=== PATIENT | male | born 1955 | race Hispanic/Latino ===

== ENCOUNTER 2018-01-21 20:43 | Emergency (ER) | payer OTHER ==
[~2018-01-21 20:43] MED LIST: AEC81 PO; GLIM4TAB3 PO; METO-391 PO; ROSU5TAB PO; SITA1TAB6 PO; TRAM50TA4 PO
[2018-01-21] MEDS ORDERED: ONDANSETRON ODT 4 MG TAB ONE (21:20)
[2018-01-21] MEDS ORDERED: ORPHENADRINE CITRATE 30 MG/ML ML ONE (21:20)
[2018-01-21] MEDS ORDERED: MORPHINE SULFATE 4 MG/1ML SYG ONE (21:21)
[2018-01-21] MEDS ORDERED: MORPHINE SULFATE 2 MG/ML 1ML SYG ONE (21:22)
== END 2018-01-21 22:25 | disposition home or self-care (01) ==
LOC: EDH 20:43
DX: S39.012A Strain of muscle, fascia and tendon of lower back, initial encounter (principal); M51.86 Other intervertebral disc disorders, lumbar region; E11.9 Type 2 diabetes mellitus without complications; I25.10 Atherosclerotic heart disease of native coronary artery without angina pectoris; I10 Essential (primary) hypertension; E78.5 Hyperlipidemia, unspecified; Z95.1 Presence of aortocoronary bypass graft; Z98.890 Other specified postprocedural states; Z79.82 Long term (current) use of aspirin; Z79.899 Other long term (current) drug therapy; X50.9XXA Other and unspecified overexertion or strenuous movements or postures, initial encounter; Y93.89 Activity, other specified; Y92.89 Other specified places as the place of occurrence of the external cause; Y99.8 Other external cause status
CPT/HCPCS: 72131; 96372 ×2; 99284; J2270; J2360

== ENCOUNTER → 2018-06-29 | Outpatient (CLI) | payer OTHER ==
[~2018-06-29] MED LIST changes: +AMLO5TAB7 PO; +INSU100I24 SQ; +ISOS30TA6 PO; +METFORMIN PO; +NITR0.4T SL; +OLME1TAB42 PO; +REGADENOSON 0.4 MG/5 ML PF SYG IVP ONE; +ROSU5TAB11 PO
== END | disposition home or self-care (01) ==
LOC: SHCH 08:10
PROVIDERS: ATTEND Internal Medicine Cardiovascular Disease
DX: I25.10 Atherosclerotic heart disease of native coronary artery without angina pectoris (principal)
CPT/HCPCS: 78452; 93017; 96374; A9500 ×2; J2785

== ENCOUNTER 2018-07-02 05:49 | Inpatient (IN) | payer OTHER ==
[2018-07-01 15:00] VITALS: BP 142/72
[2018-07-01 15:16] LABS: BASOPHILS % (AUTO) 0.6 % (0.0-5.0); HEMATOCRIT 47.3 % (42-54); LYMPHOCYTES % (AUTO) 25.3 % (21.0-51.0); MEAN CORPUSCULAR HEMOGLOBIN 31.1 pg (27.0-33.0); MEAN CORPUSCULAR HGB CONC 34.6 g/dL (32.0-36.0); MEAN CORPUSCULAR VOLUME 89.8 fL (79-99); MONOCYTES % (AUTO) 7.1 % (3.0-13.0); PLATELET COUNT (AUTO) 208 K/uL (130-400); RED BLOOD CELL COUNT(AUTO) 5.27 MIL/uL (4.50-6.20); RED CELL DISTRIBUTION WIDTH 12.9 % (11.0-15.5); WHITE BLOOD COUNT (AUTO) 6.6 K/uL (4.8-10.8)
[2018-07-01 15:17] LABS: APPEARANCE,URINE Clear (CLEAR); BILIRUBIN,URINE Negative (NEGATIVE); COLOR,URINE Yellow (YELLOW); GLUCOSE, URINE (UA) >=1000 mg/dL (NEGATIVE); KETONES,URINE Trace mg/dL (NEGATIVE); LEUKOCYTE ESTERASE ,URINE Negative (NEGATIVE); NITRATE,URINE Negative (NEGATIVE); OCCULT BLOOD,URINE Negative (NEGATIVE); PH,URINE 5.5 (5.0-8.0); PROTEIN,URINE Negative (NEGATIVE)
[2018-07-01 15:24] LABS: POTASSIUM 4.2 mmol/L (3.5-5.1)
[2018-07-01 15:28] LABS: INR 0.97 (0.85-1.15); PARTIAL THROMBOPLASTIN TIME 26.1 SEC (26.3-35.5); PROTHROMBIN TIME 10.2 SEC (9.6-11.6)
[2018-07-01 15:33] LABS: BACTERIA,URINE None Seen /HPF (None Seen); RBC,URINE 0-1 /HPF (0-1); SQUAMOUS EPITHELIAL CELL,UR None Seen /HPF (0-2); WBC,URINE 0-1 /HPF (0-1)
[2018-07-02] VITALS (28 sets, daily range): BP systolic 89–151; BP diastolic 56–88
[~2018-07-02] VITALS: Ht 170.2 cm; Wt 96.2 kg
[~2018-07-02 05:49] MED LIST changes: -METO-391 PO; -REGADENOSON 0.4 MG/5 ML PF SYG IVP ONE; -SITA1TAB6 PO; +SODIUM CHLORIDE 0.9% 500ML 500 ML IV SCH; -TRAM50TA4 PO
[2018-07-02] MEDS ORDERED: SODIUM CHLORIDE 0.9% 1000ML 1,000 ML IV ONE (06:22)
[2018-07-02] MEDS ORDERED: METO100T14 PO (07:00)
[2018-07-02] MEDS ORDERED: IOHEXOL-350 50ML VIAL IV ONE (07:14)
[2018-07-02] MEDS ORDERED: LIDOCAINE HCL 2% 20ML ONE (07:14)
[2018-07-02] MEDS ORDERED: IOHEXOL 350 MG/ML 100ML INFUS..BTL IV ONE ×4 (07:14→09:21)
[2018-07-02] MEDS ORDERED: HEPARIN SODIUM 1000UNIT/ML 10ML VIAL ONE ×4 (07:14→14:35)
[2018-07-02] MEDS ORDERED: NITROGLYCERIN 4.1 GM SPRAY TL ONE (09:43)
[2018-07-02] MEDS ORDERED: ESMOLOL HCL 10 MG/ML 10 ML VIAL ONE (09:48)
[2018-07-02] MEDS ORDERED: SODIUM BICARB 50MEQ 50ML VIAL ONE (09:49)
[2018-07-02] MEDS ORDERED: AMINOCAPROIC ACID 250 MG/ML 20 ML VIAL IV ONE (09:49)
[2018-07-02] MEDS ORDERED: PROPOFOL 10 MG/ML 20ML VIAL IV ONE (09:49)
[2018-07-02] MEDS ORDERED: PROTAMINE SULFATE 10 MG/ML 25ML VIAL IV ONE ×2 (09:49→14:35)
[2018-07-02] MEDS ORDERED: NOREPINEPHRINE BITARTRATE 1 MG/1 ML ML IV ONE (09:49)
[2018-07-02] MEDS ORDERED: FENTANYL CITRATE PF 50 MCG/1 ML 20ML VIAL IJ ONE (09:49)
[2018-07-02] MEDS ORDERED: MIDAZOLAM HCL 1 MG/ML 5ML VIAL ONE (09:49)
[2018-07-02] MEDS ORDERED: LIDOCAINE PF 2% 5ML ABBOJECT ONE (09:49)
[2018-07-02] MEDS ORDERED: EPINEPHRINE 1 MG/ML AMPULE ONE (09:49)
[2018-07-02 09:57] LABS: HEMOGLOBIN A1C 8.5 % (4.0-6.0)
[2018-07-02] MEDS: CEFUROXIME SODIUM 1.5 GM VIAL ONE ×2 (10:00→14:30)
[2018-07-02] MEDS ORDERED: OCTYL 2-CYANOACRYLATE 1 EACH TP ONE ×2 (10:00→12:22)
[2018-07-02] MEDS ORDERED: BACITRACIN 50,000 UNIT VIAL ONE ×2 (10:00→12:22)
[2018-07-02] MEDS ORDERED: PAPAVERINE HCL 30 MG/ML 2ML VIAL ONE (10:00)
[2018-07-02 10:15] LABS: ABG BASE EXCESS -0.3 mmol/L (-2.0-3.0); ABG OXYGEN SATURATION 99.1 % (95.0-99.0); ABG PCO2 34 mmHg (35-48)
[2018-07-02] MEDS ORDERED: VASOPRESSIN 20 UNITS/ML 1ML VIAL ONE (11:48)
[2018-07-02 12:03] LABS: ABG HCO3 19.3 mmol/L (21.0-28.0); ABG OXYGEN SATURATION 98.9 % (95.0-99.0); ABG PCO2 30 mmHg (35-48)
[2018-07-02 12:18] LABS: ABG BASE EXCESS 5.9 mmol/L (-2.0-3.0); ABG HCO3 28.3 mmol/L (21.0-28.0); ABG OXYGEN SATURATION 98.4 % (95.0-99.0); ABG PCO2 33 mmHg (35-48)
[2018-07-02] MEDS ORDERED: NITROGLYCERIN 50 MG/D5% WATER 1 BOT ONE (12:22)
[2018-07-02] MEDS ORDERED: ROCURONIUM 10MG/1ML SYR 10 MG/ML ML ONE ×2 (12:22→14:28)
[2018-07-02] MEDS ORDERED: EPINEPHRINE 1 MG/ML 30ML VIAL IJ ONE (12:22)
[2018-07-02] MEDS ORDERED: SODIUM CHLORIDE 0.9% 250 ML IV PRN (12:30)
[2018-07-02] MEDS ORDERED: GLUCAGON 1MG KIT 1 MG ML IM PRN (12:30)
[2018-07-02] MEDS ORDERED: NOREPINEPHRINE 4MG/NS 250ML 250 ML IV PRN (12:30)
[2018-07-02] MEDS ORDERED: EPINEPHRINE 8 MG in SODIUM CHLORIDE 0.9% 250 ML IV PRN (12:30)
[2018-07-02] MEDS ORDERED: PROPOFOL 1000 MG/100 ML 100 ML IV PRN (12:30)
[2018-07-02] MEDS ORDERED: SODIUM BICARB 50MEQ 50ML VIAL IV PRN (12:30)
[2018-07-02] MEDS ORDERED: ACETAMINOPHEN 325 MG TAB PO PRN (12:30)
[2018-07-02] MEDS ORDERED: MORPHINE SULFATE 2 MG/ML 1ML SYG IV PRN (12:30)
[2018-07-02] MEDS ORDERED: ALBUMIN (HUMAN) 5% 250 ML IV PRN (12:30)
[2018-07-02] MEDS ORDERED: SODIUM CHLORIDE 0.9% 10 ML VIAL IVP PRN (12:30)
[2018-07-02] MEDS ORDERED: CALCIUM GLUCONATE 1 GM in SODIUM CHLORIDE 0.9% 50 ML IV PRN (12:30)
[2018-07-02] MEDS ORDERED: ACETAMINOPHEN 650 MG SUPPOSITORY RC PRN (12:30)
[2018-07-02] MEDS ORDERED: DEXTROSE 50%-WATER 50 ML DISP.SYRIN IV PRN (12:30)
[2018-07-02] MEDS ORDERED: ONDANSETRON HCL 4 MG/2 ML VIAL IV PRN (12:30)
[2018-07-02] MEDS ORDERED: SODIUM CHLORIDE 0.9% 500ML 500 ML IV SCH (12:30)
[2018-07-02] MEDS ORDERED: POTASSIUM PHOS 15 mMOL+NS250ML 250 ML IV PRN (12:30)
[2018-07-02] MEDS ORDERED: SODIUM CHLORIDE 0.9% 1000ML 1,000 ML IV SCH (12:30)
[2018-07-02] MEDS ORDERED: NITROGLYCERIN 50 MG/D5% WATER 250 BOT IV SCH (12:30)
[2018-07-02] MEDS ORDERED: INSULIN REGULAR, HUMAN 3ML 100 UNIT in SODIUM CHLORIDE 0.9% 99 ML IV SCH ×2 (12:30)
[2018-07-02] MEDS ORDERED: AMINOCAPROIC ACID 15,000 MG in SODIUM CHLORIDE 0.9% 250 ML IV SCH (12:30)
[2018-07-02 13:02] LABS: ABG BASE EXCESS 1.1 mmol/L (-2.0-3.0); ABG HCO3 24.9 mmol/L (21.0-28.0); ABG OXYGEN SATURATION 98.5 % (95.0-99.0); ABG PCO2 37 mmHg (35-48)
[2018-07-02] MEDS ORDERED: INSULIN HUMULIN R 100 UNIT/ML 3ML ONE (13:03)
[2018-07-02 13:38] LABS: ABG BASE EXCESS 1.7 mmol/L (-2.0-3.0); ABG HCO3 24.5 mmol/L (21.0-28.0); ABG OXYGEN SATURATION 98.5 % (95.0-99.0); ABG PCO2 32 mmHg (35-48)
[2018-07-02 14:20] LABS: ABG BASE EXCESS -0.3 mmol/L (-2.0-3.0); ABG HCO3 22.9 mmol/L (21.0-28.0); ABG OXYGEN SATURATION 98.4 % (95.0-99.0); ABG PCO2 32 mmHg (35-48)
[2018-07-02] MEDS ORDERED: CEFUROXIME SODIUM 1.5 GM VIAL ONE (14:46)
[2018-07-02 15:20] LABS: ABG BASE EXCESS 3.4 mmol/L (-2.0-3.0); ABG HCO3 26.9 mmol/L (21.0-28.0); ABG OXYGEN SATURATION 97.2 % (95.0-99.0); ABG PCO2 37 mmHg (35-48)
[2018-07-02] MEDS: POTASSIUM CHLORIDE 20MEQ/100ML 100 ML IV PRN ×3 (15:22→20:37)
[2018-07-02 15:24] LABS: HEMATOCRIT 29.4 % (42-54); MEAN CORPUSCULAR HEMOGLOBIN 30.3 pg (27.0-33.0); MEAN CORPUSCULAR HGB CONC 34.3 g/dL (32.0-36.0); MEAN CORPUSCULAR VOLUME 88.4 fL (79-99); NUCLEATED RED BLOOD CELLS 0.1 % (0.0-0.19); PLATELET COUNT (AUTO) 138 K/uL (130-400); RED BLOOD CELL COUNT(AUTO) 3.32 MIL/uL (4.50-6.20); RED CELL DISTRIBUTION WIDTH 12.5 % (11.0-15.5); WHITE BLOOD COUNT (AUTO) 10.1 K/uL (4.8-10.8)
[2018-07-02 15:35] LABS: MAGNESIUM 1.7 mg/dL (1.80-2.40); PHOSPHORUS 2.2 mg/dL (2.5-4.9); POTASSIUM 3.7 mmol/L (3.5-5.1)
[2018-07-02] MEDS: MAGNESIUM 2GM PREMIX 50ML 50 ML IV PRN (15:55)
[2018-07-02] MEDS: MORPHINE SULFATE 4 MG/1ML SYG IV PRN ×2 (15:56→19:45)
[2018-07-02 18:23] LABS: ABG HCO3 22.7 mmol/L (21.0-28.0); ABG PCO2 34 mmHg (35-48)
[2018-07-02 18:48] LABS: MAGNESIUM 2.2 mg/dL (1.80-2.40); POTASSIUM 3.8 mmol/L (3.5-5.1)
[2018-07-02 20:39] LABS: ABG BASE EXCESS 2.3 mmol/L (-2.0-3.0); ABG HCO3 26.4 mmol/L (21.0-28.0); ABG OXYGEN SATURATION 97.7 % (95.0-99.0); ABG PCO2 39 mmHg (35-48)
[2018-07-02 22:40] LABS: INR 1.05 (0.85-1.15); PARTIAL THROMBOPLASTIN TIME 29.3 SEC (26.3-35.5)
[2018-07-02] MEDS: CEFUROXIME SODIUM 1.5 GM VIAL IVP SCH (22:47)
[2018-07-03] VITALS (31 sets, daily range): BP systolic 94–119; BP diastolic 45–77
[2018-07-03] MEDS: TRAMADOL HCL 50 MG TABLET PO PRN ×5 (04:44→16:25)
[2018-07-03 04:52] LABS: HEMATOCRIT 30.9 % (42-54); MEAN CORPUSCULAR HEMOGLOBIN 31.3 pg (27.0-33.0); MEAN CORPUSCULAR VOLUME 89.6 fL (79-99); PLATELET COUNT (AUTO) 171 K/uL (130-400); RED BLOOD CELL COUNT(AUTO) 3.45 MIL/uL (4.50-6.20); RED CELL DISTRIBUTION WIDTH 13.1 % (11.0-15.5); WHITE BLOOD COUNT (AUTO) 9.8 K/uL (4.8-10.8)
[2018-07-03 05:05] LABS: INR 1.04 (0.85-1.15); PARTIAL THROMBOPLASTIN TIME 25.1 SEC (26.3-35.5); PROTHROMBIN TIME 10.9 SEC (9.6-11.6)
[2018-07-03 05:06] LABS: CREATININE 1.1 mg/dL (0.5-1.5); MAGNESIUM 1.8 mg/dL (1.80-2.40); PHOSPHORUS 2.6 mg/dL (2.5-4.9); POTASSIUM 3.8 mmol/L (3.5-5.1)
[2018-07-03] MEDS: MAGNESIUM 2GM PREMIX 50ML 50 ML IV PRN (05:45)
[2018-07-03] MEDS: POTASSIUM CHLORIDE 20MEQ/100ML 100 ML IV PRN (05:45)
[2018-07-03] MEDS: PANTOPRAZOLE SODIUM 40 MG TABLET.DR PO SCH (08:40)
[2018-07-03] MEDS ORDERED: PANTOPRAZOLE 40 MG/VIAL IV SCH (09:00)
[2018-07-03] MEDS: CEFUROXIME SODIUM 1.5 GM VIAL IVP SCH ×2 (10:59→23:52)
[2018-07-03] MEDS ORDERED: METOPROLOL TARTRATE 25 MG TAB ONE (16:37)
[2018-07-03] MEDS ORDERED: ALBUMIN (HUMAN) 5% 250 ML IV PRN (16:45)
[2018-07-03] MEDS: METOPROLOL TARTRATE 25 MG TAB PO SCH ×2 (17:24→20:17)
[2018-07-03] MEDS ORDERED: FUROSEMIDE 10 MG/ML 2ML VIAL IV SCH (19:30)
[2018-07-03] MEDS: ATORVASTATIN CALCIUM 10 MG TABLET PO SCH (20:17)
[2018-07-03] MEDS: ALPRAZOLAM 0.25 MG TABLET PO SCH (21:00)
[2018-07-04] VITALS (20 sets, daily range): BP systolic 103–144; BP diastolic 52–89
[2018-07-04] MEDS: TRAMADOL HCL 50 MG TABLET PO PRN ×4 (00:12→19:53)
[2018-07-04 07:22] LABS: HEMATOCRIT 29.6 % (42-54); MEAN CORPUSCULAR HEMOGLOBIN 30.3 pg (27.0-33.0); MEAN CORPUSCULAR HGB CONC 33.4 g/dL (32.0-36.0); MEAN CORPUSCULAR VOLUME 90.7 fL (79-99); PLATELET COUNT (AUTO) 136 K/uL (130-400); RED BLOOD CELL COUNT(AUTO) 3.26 MIL/uL (4.50-6.20); RED CELL DISTRIBUTION WIDTH 13.3 % (11.0-15.5); WHITE BLOOD COUNT (AUTO) 11.8 K/uL (4.8-10.8)
[2018-07-04 07:27] LABS: CREATININE 1.1 mg/dL (0.5-1.5); POTASSIUM 3.9 mmol/L (3.5-5.1)
[2018-07-04 07:31] LABS: MAGNESIUM 2.1 mg/dL (1.80-2.40); PHOSPHORUS 3.1 mg/dL (2.5-4.9)
[2018-07-04] MEDS: PANTOPRAZOLE SODIUM 40 MG TABLET.DR PO SCH (07:47)
[2018-07-04] MEDS: METOPROLOL TARTRATE 25 MG TAB PO SCH ×2 (07:47→19:53)
[2018-07-04] MEDS: ASPIRIN 81 MG EC TAB PO SCH (07:47)
[2018-07-04] MEDS: POTASSIUM CHLORIDE 20MEQ/100ML 100 ML IV PRN (09:34)
[2018-07-04] MEDS: FUROSEMIDE 20 MG TABLET PO SCH (16:10)
[2018-07-04 16:44] LABS: ABG BASE EXCESS 2.3 mmol/L (-2.0-3.0); ABG HCO3 23.8 mmol/L (21.0-28.0); ABG OXYGEN SATURATION 98.7 % (95.0-99.0); ABG PCO2 29 mmHg (35-48)
[2018-07-04 16:44] LABS: ABG BASE EXCESS 0.8 mmol/L (-2.0-3.0); ABG HCO3 24.8 mmol/L (21.0-28.0); ABG OXYGEN SATURATION 97.5 % (95.0-99.0); ABG PCO2 38 mmHg (35-48)
[2018-07-04] MEDS: INSULIN HUMULIN R 100 UNIT/ML 3ML SQ SCH ×2 (17:27→20:11)
[2018-07-04] MEDS: ATORVASTATIN CALCIUM 10 MG TABLET PO SCH (19:53)
[2018-07-04] MEDS: ALPRAZOLAM 0.25 MG TABLET PO SCH (19:54)
[2018-07-05 03:59] VITALS: BP 120/75
[2018-07-05 04:08] LABS: HEMATOCRIT 27.4 % (42-54); MEAN CORPUSCULAR HEMOGLOBIN 31.7 pg (27.0-33.0); MEAN CORPUSCULAR HGB CONC 34.6 g/dL (32.0-36.0); MEAN CORPUSCULAR VOLUME 91.7 fL (79-99); PLATELET COUNT (AUTO) 133 K/uL (130-400); RED BLOOD CELL COUNT(AUTO) 2.99 MIL/uL (4.50-6.20); RED CELL DISTRIBUTION WIDTH 13.1 % (11.0-15.5)
[2018-07-05 04:20] LABS: CREATININE 1.1 mg/dL (0.5-1.5); POTASSIUM 3.8 mmol/L (3.5-5.1)
[2018-07-05] MEDS: INSULIN HUMULIN R 100 UNIT/ML 3ML SQ SCH ×5 (05:26→20:51)
[2018-07-05] MEDS: TRAMADOL HCL 50 MG TABLET PO PRN ×3 (05:43→18:23)
[2018-07-05 07:00] VITALS: BP 112/60
[2018-07-05] MEDS ORDERED: POTASSIUM CHLORIDE 10% ELIXIR 20 MEQ/15 ML UDCUP PO PRN (07:30)
[2018-07-05] MEDS ORDERED: LIDOCAINE HCL-MPF 1% 2ML VIAL IVP PRN (07:30)
[2018-07-05] MEDS: ENOXAPARIN SODIUM 30 MG/0.3 ML SQ SCH (08:21)
[2018-07-05] MEDS: POTASSIUM CHLORIDE 20 MEQ ERTAB PO PRN ×2 (08:21→17:06)
[2018-07-05] MEDS: METOPROLOL TARTRATE 25 MG TAB PO SCH ×2 (08:22→09:50)
[2018-07-05] MEDS: PANTOPRAZOLE SODIUM 40 MG TABLET.DR PO SCH (08:22)
[2018-07-05] MEDS: FUROSEMIDE 20 MG TABLET PO SCH ×2 (08:22→17:05)
[2018-07-05] MEDS: ASPIRIN 81 MG EC TAB PO SCH (08:22)
[2018-07-05 11:00] VITALS: BP 107/64
[2018-07-05 16:00] VITALS: BP 106/63
[2018-07-05 19:40] VITALS: BP 127/72
[2018-07-05] MEDS: ALPRAZOLAM 0.25 MG TABLET PO SCH (20:43)
[2018-07-05] MEDS: METOPROLOL TARTRATE 50 MG TAB PO SCH (20:43)
[2018-07-05] MEDS: ATORVASTATIN CALCIUM 40 MG TABLET PO SCH (20:43)
[2018-07-06 00:06] VITALS: BP 114/63
[2018-07-06 03:30] VITALS: BP 102/57
[2018-07-06 06:04] LABS: BASOPHILS % (AUTO) 0.3 % (0.0-5.0); EOSINOPHILS % (AUTO) 2.6 % (0.0-8.0); HEMATOCRIT 28.3 % (42-54); LYMPHOCYTES % (AUTO) 12.2 % (21.0-51.0); MEAN CORPUSCULAR HEMOGLOBIN 30.9 pg (27.0-33.0); MEAN CORPUSCULAR HGB CONC 33.9 g/dL (32.0-36.0); NEUTROPHILS % (AUTO) 74.9 % (40.0-77.0); PLATELET COUNT (AUTO) 160 K/uL (130-400); RED BLOOD CELL COUNT(AUTO) 3.11 MIL/uL (4.50-6.20); RED CELL DISTRIBUTION WIDTH 13.3 % (11.0-15.5)
[2018-07-06] MEDS: INSULIN HUMULIN R 100 UNIT/ML 3ML SQ SCH ×4 (06:06→21:52)
[2018-07-06 06:10] LABS: CREATININE 1.1 mg/dL (0.5-1.5); POTASSIUM 3.7 mmol/L (3.5-5.1)
[2018-07-06 07:00] VITALS: BP 109/56
[2018-07-06] MEDS: FUROSEMIDE 20 MG TABLET PO SCH ×2 (07:43→16:30)
[2018-07-06] MEDS: ASPIRIN 81 MG EC TAB PO SCH (07:43)
[2018-07-06] MEDS: METOPROLOL TARTRATE 50 MG TAB PO SCH (07:43)
[2018-07-06] MEDS: PANTOPRAZOLE SODIUM 40 MG TABLET.DR PO SCH (07:43)
[2018-07-06] MEDS: ENOXAPARIN SODIUM 30 MG/0.3 ML SQ SCH (07:44)
[2018-07-06] MEDS: METOPROLOL TARTRATE 25 MG TAB PO SCH ×3 (07:45→21:47)
[2018-07-06 11:59] VITALS: BP_SYST 122; BP_SYST 71; BP_DIAS 71
[2018-07-06 16:00] VITALS: BP 119/71
[2018-07-06] MEDS: ALPRAZOLAM 0.25 MG TABLET PO SCH (21:47)
[2018-07-06] MEDS: ATORVASTATIN CALCIUM 40 MG TABLET PO SCH (21:48)
[2018-07-07] VITALS: BP 123/69
[2018-07-07 04:00] VITALS: BP 122/71
[2018-07-07 04:56] LABS: HEMATOCRIT 27.2 % (42-54); MEAN CORPUSCULAR HEMOGLOBIN 31.4 pg (27.0-33.0); MEAN CORPUSCULAR HGB CONC 34.6 g/dL (32.0-36.0); MEAN CORPUSCULAR VOLUME 90.8 fL (79-99); NUCLEATED RED BLOOD CELLS 0.1 % (0.0-0.19); PLATELET COUNT (AUTO) 181 K/uL (130-400); WHITE BLOOD COUNT (AUTO) 5.8 K/uL (4.8-10.8)
[2018-07-07 05:16] LABS: PHOSPHORUS 2.7 mg/dL (2.5-4.9); POTASSIUM 3.6 mmol/L (3.5-5.1)
[2018-07-07] MEDS: INSULIN HUMULIN R 100 UNIT/ML 3ML SQ SCH ×3 (06:39→17:07)
[2018-07-07 07:51] VITALS: BP 131/70
[2018-07-07] MEDS: METOPROLOL TARTRATE 25 MG TAB PO SCH ×3 (09:30→14:14)
[2018-07-07] MEDS: ENOXAPARIN SODIUM 30 MG/0.3 ML SQ SCH (10:13)
[2018-07-07] MEDS: ASPIRIN 81 MG EC TAB PO SCH (10:14)
[2018-07-07] MEDS: POTASSIUM CHLORIDE 20 MEQ ERTAB PO PRN ×2 (10:14→17:06)
[2018-07-07] MEDS: PANTOPRAZOLE SODIUM 40 MG TABLET.DR PO SCH (10:14)
[2018-07-07] MEDS: FUROSEMIDE 20 MG TABLET PO SCH ×2 (10:14→17:06)
[2018-07-07 11:00] VITALS: BP 130/68
[2018-07-07 16:20] VITALS: BP 111/70
[2018-07-07] MEDS ORDERED: METO25 PO ×2 (16:22)
[2018-07-07] MEDS ORDERED: AEC81 PO ×2 (16:22)
[2018-07-07] MEDS ORDERED: FURO20TA6 PO ×2 (16:22)
[2018-07-07] MEDS ORDERED: ATOR40TA69 PO ×2 (16:22)
== END 2018-07-07 18:00 | disposition home or self-care (01) | DRG 231 ==
LOC: DAH 05:49 → DAHIP 05:50 → 2CV 14:43 → 2CH 07-03 05:57 → 2BH 07-03 14:00 → 2CH 07-04 15:00 → 4CH 07-06 08:27
PROVIDERS: ADMIT Internal Medicine Critical Care Medicine; ATTEND Internal Medicine Critical Care Medicine
PROC: 4A023N7 Measurement of Cardiac Sampling and Pressure, Left Heart, Percutaneous Approach (ICD-10-PCS; 2018-07-02)
PROC: B2111ZZ Fluoroscopy of Multiple Coronary Arteries using Low Osmolar Contrast (ICD-10-PCS; 2018-07-02)
PROC: B2151ZZ Fluoroscopy of Left Heart using Low Osmolar Contrast (ICD-10-PCS; 2018-07-02)
PROC: 0BH17EZ Insertion of Endotracheal Airway into Trachea, Via Natural or Artificial Opening (ICD-10-PCS; 2018-07-02)
PROC: 5A1935Z Respiratory Ventilation, Less than 24 Consecutive Hours (ICD-10-PCS; 2018-07-02)
PROC: 027034Z Dilation of Coronary Artery, One Artery with Drug-eluting Intraluminal Device, Percutaneous Approach (ICD-10-PCS; 2018-07-02)
PROC: 021209W Bypass Coronary Artery, Three Arteries from Aorta with Autologous Venous Tissue, Open Approach (ICD-10-PCS; principal; 2018-07-03)
PROC: 06BQ4ZZ Excision of Left Saphenous Vein, Percutaneous Endoscopic Approach (ICD-10-PCS; 2018-07-03)
PROC: 06BP4ZZ Excision of Right Saphenous Vein, Percutaneous Endoscopic Approach (ICD-10-PCS; 2018-07-03)
PROC: 30233L1 Transfusion of Nonautologous Fresh Plasma into Peripheral Vein, Percutaneous Approach (ICD-10-PCS; 2018-07-03)
PROC: 30233R1 Transfusion of Nonautologous Platelets into Peripheral Vein, Percutaneous Approach (ICD-10-PCS; 2018-07-03)
PROC: 30233K1 Transfusion of Nonautologous Frozen Plasma into Peripheral Vein, Percutaneous Approach (ICD-10-PCS; 2018-07-03)
PROC: 5A1221Z Performance of Cardiac Output, Continuous (ICD-10-PCS; 2018-07-03)
DX: I25.110 Atherosclerotic heart disease of native coronary artery with unstable angina pectoris (principal); I21.9 Acute myocardial infarction, unspecified; I77.70 Dissection of unspecified artery; I10 Essential (primary) hypertension; E11.9 Type 2 diabetes mellitus without complications; E66.9 Obesity, unspecified; E78.5 Hyperlipidemia, unspecified; Z96.659 Presence of unspecified artificial knee joint; Z95.1 Presence of aortocoronary bypass graft; Z79.4 Long term (current) use of insulin; Z79.82 Long term (current) use of aspirin; Z87.442 Personal history of urinary calculi; Z68.33 Body mass index [BMI] 33.0-33.9, adult
CPT/HCPCS: 36415; 71045; 80048; 81001; 82330; 82435; 82803; 82947; 82948; 83036; 83605; 83735; 84100; 84132; 84295; 85018; 85025; 85027; 85347; 85610; 85730; 86850; 86900; 86901; 86922; 86927; 93005; 93306; 93459; 94002; 94150; 97039; A4218; A4606; A7048; C1725; C1769; C1887; C1894; C9113; C9600; J0171; J0610; J0697; J1644; J1650; J1815; J1940; J2001; J2250; J2270; J2440; J2704; J2720; J3010; J3475; J3480; J3490; J7030; J7040; P9017; P9034; P9045; Q9967

== ENCOUNTER 2018-07-08 23:58 | Inpatient (IN) | payer OTHER ==
[~2018-07-08 23:58] MED LIST changes: +ATOR40TA69 PO; +FURO20TA6 PO; +METO100T14 PO; +METO25 PO; -SODIUM CHLORIDE 0.9% 500ML 500 ML IV SCH
[2018-07-09] MEDS ORDERED: ASPIRIN 325 MG TABLET ONE (00:11)
[2018-07-09 00:15] LABS: BASOPHILS % (AUTO) 0.4 % (0.0-5.0); EOSINOPHILS % (AUTO) 2.3 % (0.0-8.0); HEMATOCRIT 32.3 % (42-54); LYMPHOCYTES % (AUTO) 17.8 % (21.0-51.0); MEAN CORPUSCULAR HEMOGLOBIN 31.3 pg (27.0-33.0); MEAN CORPUSCULAR HGB CONC 34.4 g/dL (32.0-36.0); MEAN CORPUSCULAR VOLUME 91.1 fL (79-99); MONOCYTES % (AUTO) 12.3 % (3.0-13.0); NEUTROPHILS % (AUTO) 67.2 % (40.0-77.0); NUCLEATED RED BLOOD CELLS 0.1 % (0.0-0.19); PLATELET COUNT (AUTO) 268 K/uL (130-400); RED BLOOD CELL COUNT(AUTO) 3.54 MIL/uL (4.50-6.20); WHITE BLOOD COUNT (AUTO) 7.7 K/uL (4.8-10.8)
[2018-07-09 00:23] LABS: CREATININE 0.9 mg/dL (0.5-1.5); POTASSIUM 4.1 mmol/L (3.5-5.1)
[2018-07-09] MEDS ORDERED: MORPHINE SULFATE 2 MG/ML 1ML SYG ONE ×2 (00:25→04:52)
[2018-07-09 00:27] LABS: PARTIAL THROMBOPLASTIN TIME 23.9 SEC (26.3-35.5); PROTHROMBIN TIME 10.5 SEC (9.6-11.6)
[2018-07-09] MEDS ORDERED: IPRATROPIUM/ALBUTEROL SULFATE 3 ML SOLUTION IH ONE (00:32)
[2018-07-09 00:33] LABS: BILIRUBIN,TOTAL 0.7 mg/dL (0.2-1.0)
[2018-07-09] MEDS ORDERED: IOHEXOL 350 MG/ML 100ML INFUS..BTL IV ONE (01:14)
[2018-07-09] MEDS ORDERED: ENOXAPARIN SODIUM 100 MG/1 ML SQ ONE (02:43)
[2018-07-09] MEDS ORDERED: DEXTROSE 50%-WATER 50 ML DISP.SYRIN IV PRN (05:00)
[2018-07-09] MEDS ORDERED: MORPHINE SULFATE 2 MG/ML 1ML SYG IVP PRN (05:00)
[2018-07-09] MEDS ORDERED: GLUCAGON 1MG KIT 1 MG ML IM PRN (05:00)
[2018-07-09] MEDS: INSULIN R PO SS1 SQ SCH ×3 (05:08→16:30)
[2018-07-09] MEDS ORDERED: POTASSIUM CHLORIDE 20MEQ/100ML 100 ML IV PRN (05:15)
[2018-07-09] MEDS ORDERED: POTASSIUM CHLORIDE 20 MEQ ERTAB PO PRN (05:15)
[2018-07-09] MEDS ORDERED: LIDOCAINE HCL-MPF 1% 2ML VIAL IJ PRN (05:15)
[2018-07-09] MEDS ORDERED: ONDANSETRON HCL 4 MG/2 ML VIAL IVP PRN (05:15)
[2018-07-09] MEDS ORDERED: POTASSIUM CHLORIDE 10% ELIXIR 20 MEQ/15 ML UDCUP PO PRN (05:15)
[2018-07-09] MEDS ORDERED: ACETAMINOPHEN 325 MG TAB PO PRN (05:15)
[2018-07-09] MEDS: IPRATROPIUM/ALBUTEROL SULFATE 3 ML SOLUTION IH SCH ×3 (06:08→14:41)
[2018-07-09 07:36] VITALS: BP 118/71
[2018-07-09] MEDS ORDERED: FUROSEMIDE 40 MG TABLET PO SCH (09:00)
[2018-07-09] MEDS ORDERED: METOPROLOL TARTRATE 25 MG TAB PO SCH (09:00)
[2018-07-09] MEDS ORDERED: ENOXAPARIN SODIUM 100 MG/1 ML SQ SCH (09:00)
[2018-07-09] MEDS ORDERED: PANTOPRAZOLE SODIUM 40 MG TABLET.DR PO SCH (09:00)
[2018-07-09 11:06] VITALS: BP 116/67
[2018-07-09 16:23] VITALS: BP 114/73
== END 2018-07-09 17:20 | disposition home or self-care (01) | DRG 176 ==
LOC: EDH 23:58 → EDHIP 07-09 03:15 → 2AH 07-09 04:01
PROVIDERS: ADMIT Internal Medicine; ATTEND Internal Medicine
DX: I26.09 Other pulmonary embolism with acute cor pulmonale (principal); J90 Pleural effusion, not elsewhere classified; E11.9 Type 2 diabetes mellitus without complications; I10 Essential (primary) hypertension; E78.5 Hyperlipidemia, unspecified; I25.10 Atherosclerotic heart disease of native coronary artery without angina pectoris; Z95.1 Presence of aortocoronary bypass graft
CPT/HCPCS: 36415; 71045; 71275; 80053; 82550; 82948; 83874; 84484; 85025; 85378; 85610; 85730; 93005; 93970; 94640; 94664; J1650; J1815; Q9967

== ENCOUNTER → 2018-12-09 | Outpatient (CLI) | payer OTHER ==
[~2018-12-09] MED LIST changes: -AMLO5TAB7 PO; -ISOS30TA6 PO; -METFORMIN PO; -METO100T14 PO; -OLME1TAB42 PO; -ROSU5TAB PO; -ROSU5TAB11 PO
== END | disposition home or self-care (01) ==
LOC: SHCH 10:20
PROVIDERS: ATTEND Internal Medicine Cardiovascular Disease
DX: I25.810 Atherosclerosis of coronary artery bypass graft(s) without angina pectoris (principal); E78.00 Pure hypercholesterolemia, unspecified; I10 Essential (primary) hypertension; E78.5 Hyperlipidemia, unspecified; E11.9 Type 2 diabetes mellitus without complications
CPT/HCPCS: 93970

== ENCOUNTER → 2024-02-15 | Outpatient (CLI) | payer OTHER ==
[~2024-02-15] MED LIST changes: -GLIM4TAB3 PO; +GLIM4TAB36 PO
== END | disposition home or self-care (01) ==
LOC: RAH 10:17
PROVIDERS: ATTEND Internal Medicine Cardiovascular Disease
DX: M47.816 Spondylosis without myelopathy or radiculopathy, lumbar region (principal); M54.50 Low back pain, unspecified
CPT/HCPCS: 72100

== ENCOUNTER 2024-08-02 16:41 | Observation (INO) | payer OTHER ==
[~2024-08-02] VITALS: Ht 172.7 cm; Wt 88.7 kg
--- NOTE | 2024-08-02 16:50 | EKG ---
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 : 1955 Requested By: GERALDINE FERNANDEZ Order Number: [id number] Reading MD: Tian Havrey Measurements Intervals Abrams Rate: 72 P: 24 FL: 165 QRS: -58 QRSD: 124 T: 128 QT: 433 QTc: 475 Interpretive Statements Sinus rhythm Nonspecific IVCD with LAD Consider inferior infarct Abnormal T, consider ischemia, lateral leads Compared to ECG 07/09/2018 00:00:53 Intraventricular conduction delay now present Myocardial infarct finding now present T-wave abnormality now present Sinus tachycardia no longer present Left anterior fascicular block no longer present ST (T wave) deviation no longer present Possible ischemia still present Electronically Signed On 08-03-2024 18:39:23 AUTOMATIC EDGER by Tian Harvey Please click the below link to view image of tracing.
[2024-08-02 17:16] LABS: BASOPHILS # (AUTO) 0.06 K/uL (0.00-0.20); BASOPHILS % (AUTO) 0.9 % (0.0-5.0); EOSINOPHILS # (AUTO) 0.12 K/uL (0.00-0.70); EOSINOPHILS % (AUTO) 1.7 % (0.0-8.0); HEMATOCRIT 45.6 % (42-54); IMMATURE GRANULOCYTE ABSOLUTE 0.02 K/uL (0-1); LYMPHOCYTES # (AUTO) 1.8 K/uL (1.0-4.8); LYMPHOCYTES % (AUTO) 25.1 % (21.0-51.0); MEAN CORPUSCULAR HEMOGLOBIN 30.4 pg (27.0-33.0); MEAN CORPUSCULAR HGB CONC 33.1 g/dL (32.0-36.0); MEAN CORPUSCULAR VOLUME 91.9 fL (79-99); MONOCYTES # (AUTO) 0.5 K/uL (0.1-1.0); MONOCYTES % (AUTO) 7.3 % (3.0-13.0); NEUTROPHILS # (AUTO) 4.5 K/uL (1.8-7.7); NEUTROPHILS % (AUTO) 64.7 % (40.0-77.0); PLATELET COUNT (AUTO) 185 K/uL (130-400); RED BLOOD CELL COUNT(AUTO) 4.96 MIL/uL (4.50-6.20); RED CELL DISTRIBUTION WIDTH 13.7 % (11.0-15.5)
[2024-08-02 17:31] LABS: COVID19 (SARS ANTIGEN RAPID) PRESUMPTIVE NEGATIVE (NEGATIVE)
[2024-08-02 17:31] LABS: CREATININE 1.2 mg/dL (0.5-1.3); POTASSIUM 4.2 mmol/L (3.5-5.1)
--- NOTE | 2024-08-02 17:32 | HMCIMG ---
PORTABLE CHEST RADIOGRAPH INDICATION: CHEST PAIN COMPARISON: 07/09/2018 CTA chest FINDINGS: Median sternotomy wires are in appropriate alignment. Heart is slightly enlarged. The pulmonary vascularity and hawa appear normal. No abnormal pulmonary parenchymal opacity or consolidation identified. No significant pleural effusion noted. No pneumothorax detected. IMPRESSION: Mild cardiac enlargement without radiographic evidence for any acute cardiopulmonary process.
[2024-08-02 17:36] LABS: INFLUENZA TYPE A Negative For Type A (NEGATIVE); INFLUENZA TYPE B Negative For Type B (NEGATIVE)
--- NOTE | 2024-08-02 17:53 | ERN ---
General Chief Complaint: Chest Pain Stated Complaint: CHEST PAIN Time Seen by MD: 16:43 History of Present Illness Initial Comments 68 y/o male presents for dyspnea epigastric and chest discomfort over the last couple of weeks. He reports progressive dyspnea mostly with exercise. He reports a little bit of pedal edema. He has been experiencing some epigastric bloating and pain which does increase with movement. He has been eating. No vomiting or diarrhea. No heartburn. PCP: [employer] Ambassador: Joshua Allergies: Coded Allergies: No Known Drug Allergies (Verified Allergy, Unknown, 02/17/14) Home Meds Active Scripts Furosemide (Lasix 20Mg Tab) 20 Mg Tablet, 20 MG PO BID@09,17 for 30 Days, #60 TAB Prov:QUANG MONTERO NP 07/07/18 Atorvastatin Calcium (LIPITOR) 40 Mg Tablet, 40 MG PO HS for 30 Days, #30 TAB Prov:QUANG MONTERO NP 07/07/18 Aspirin (ASPIRIN 81 MG ECTAB) 81 Mg Ectab, 81 MG PO DAILY for 30 Days, #30 TAB.EC Prov:QUANG MONTERO NP 07/07/18 Metoprolol Tartrate (Lopressor) 25 Mg Tab, 25 MG PO TID for 30 Days, #90 TAB Prov:QUANG MONTERO NP 07/07/18 Reported Medications Insulin Degludec (Tresiba Flextouch U-100) 100 Unit/1 Ml Insuln.pen, 30 UNITS SQ DAILY, SYRINGE 07/01/18 Nitroglycerin (Nitrostat) 0.4 Mg Tab.subl, 0.4 MG SL AD PRN for CHEST PAIN, TAB.SL 07/01/18 Glimepiride (Glimepiride) 4 Mg Tablet, 4 MG PO BIDMEALS, TAB 06/12/14 Past Medical History Past Medical History: Diabetes-Type II, High Cholesterol, Hypertension, CA Past Surgical History: CABG ROS Dictation Chest pain Results Laboratory and Microbiology Lab and Micro Result Laboratory Tests Test 08/02/24 16:52 08/02/24 16:55 08/02/24 17:13 Influenza Type A Antigen Negative For Type A Influenza Type B Antigen Negative For Type B SARS-CoV-2 Antigen (Rapid) PRESUMPTIVE NEGATIVE White Blood Count 7.0 K/uL (4.8-10.8) Red Blood Count 4.96 MIL/uL (4.50-6.20) Hemoglobin 15.1 g/dL (14.0-18.0) Hematocrit 45.6 % (42-54) Mean Corpuscular Volume 91.9 fL (79-99) Mean Corpuscular Hemoglobin 30.4 pg (27.0-33.0) Mean Corpuscular Hemoglobin Concent 33.1 g/dL (32.0-36.0) Red Cell Distribution Width 13.7 % (11.0-15.5) Platelet Count 185 K/uL (130-400) Mean Platelet Volume 9.2 fL (7.5-10.5) Immature Granulocyte % (Auto) 0.3 % (0-1) Neutrophils (%) (Auto) 64.7 % (40.0-77.0) Lymphocytes (%) (Auto) 25.1 % (21.0-51.0) Monocytes (%) (Auto) 7.3 % (3.0-13.0) Eosinophils (%) (Auto) 1.7 % (0.0-8.0) Basophils (%) (Auto) 0.9 % (0.0-5.0) Neutrophils # (Auto) 4.5 K/uL (1.8-7.7) Lymphocytes # (Auto) 1.8 K/uL (1.0-4.8) Monocytes # (Auto) 0.5 K/uL (0.1-1.0) Eosinophils # (Auto) 0.12 K/uL (0.00-0.70) Basophils # (Auto) 0.06 K/uL (0.00-0.20) Absolute Immature Granulocyte (auto 0.02 K/uL (0-1) Nucleated Red Blood Cells 0.0 % (0.0-0.19) Sodium Level 142 mmol/L (136-145) Potassium Level 4.2 mmol/L (3.5-5.1) Chloride Level 105 mmol/L (101-111) Carbon Dioxide Level 27 mmol/L (21-32) Blood Urea Nitrogen 23 mg/dL (7-18) H Creatinine 1.2 mg/dL (0.5-1.3) Glomerular Filtration Rate Calc 66 mL/min (>90) Random Glucose 148 mg/dL (70-105) H Total Calcium 9.2 mg/dL (8.5-10.1) Total Bilirubin 1.0 mg/dL (0.2-1.0) Direct Bilirubin 0.2 mg/dL (0.0-0.3) Aspartate Amino Transf (AST/SGOT) 34 U/L (10-37) Alanine Aminotransferase (ALT/SGPT) 48 U/L (12-78) Alkaline Phosphatase 78 U/L (50-136) Total Creatine Kinase 271 U/L (21-232) #H B-Type Natriuretic Peptide 568 pg/mL (0-100) H Total Protein 7.0 g/dL (6.0-8.3) Albumin 4.0 g/dL (3.5-5.0) Lipase 52 U/L (16-77) Troponin I < 0.05 ng/mL (0.00-0.05) [facility] Dr. Frances: I took over care at 7:00 p.m.. CC: Chest pain, dyspnea Historian: Patient PCP: Luciano Limitations by social determinates of health: none Differential diagnosis: ACS, PE, pleural effusion, fluid overload, pne umothorax, other. Vital signs are stable. Clinical exam shows 1+ pitting edema to the feet otherwise unremarkable. Decreased breath sounds on the right compared to the left. Labs ( independently ordered and interpreted by me): CBC is normal , chemistries normal. Troponin normal. Liver enzymes normal. CK normal. Lipase normal. Mild elevation of the BNP 568. EKG: Sinus rhythm rate of 72 left axis deviation good R-wave progression. CXR mild cardiomegaly no acute abnormalities otherwise sternotomy wires appropriate. Independently interpreted by me. CT abdomen and pelvis for might have been interpretation shows no surgical pathology. There is a left lower lobe micronodule those as well as a small right pleural effusion, with metastatic disease if the top differential. Due to this finding, we will admit for further treatment evaluation. Patient is agreeable. ED Course Orders Procedure Category Date Status Time Vital Signs Per CPOE 08/02/24 Transmitted Routine 16:42 B-Type Natriuretic LAB 08/02/24 Complete Peptide 16:42 Chest 1vw RAD 08/02/24 Resulted 16:42 12 Lead Ekg Tracing- EKG 08/02/24 Complete Technical 16:42 Oxygen By Nc/Pulse Ox CPOE 08/02/24 Transmitted 16:42 Maintain Iv CPOE 08/02/24 Transmitted 16:42 Iv Insertion CPOE 08/02/24 Transmitted 16:42 Cardiac Monitoring CPOE 08/02/24 Transmitted 16:42 Pulse Oximetry With CPOE 08/02/24 Transmitted Vs And Prn 16:42 Cbc With Differential LAB 08/02/24 Complete 16:42 Activity: Br W/Brp CPOE 08/02/24 Transmitted With Assist 16:42 Creatine Kinase, Total LAB 08/02/24 Complete 16:42 Urinalysis Profile LAB 08/02/24 Logged 16:42 Troponin Poc Order LAB 08/02/24 Complete Only 16:42 Bedside Troponin-I LAB.ER 08/02/24 In Process (Poc) 16:42 Basic Metabolic Panel LAB 08/02/24 Complete 16:42 Covid19 (Sars Antigen LAB 08/02/24 Complete Rapid) 16:42 Influenza Type A & B, LAB 08/02/24 Complete Rapid 16:42 Aspirin 325mg Tab PHA 08/02/24 Complete (Aspirin 325mg Tab) 20:00 Hepatic Function Panel LAB 08/02/24 Complete 20:06 Lipase LAB 08/02/24 Complete 20:06 Ct Abdomen/Pelvis CT 08/02/24 Resulted W/Contrast 20:06 Iohexol (Omnipaque) PHA 08/02/24 Complete 20:20 Ct Chest W/Contrast CT 08/02/24 Resulted 20:48 Iohexol (Omnipaque) PHA 08/02/24 Complete 21:22 Current Medications Medications (Trade) Dose Ordered Sig/Dmitry Route PRN Reason Start Time Stop Time Status Last Admin Dose Admin Acetaminophen (TYLenol 325MG TAB) 650 mg Q6H PRN PO FEVER/MILD PAIN LEVEL 1-3 08/02/24 21:30 09/01/24 21:29 Albuterol Sulfate (Proventil 0.083% 2.5mg/3ml) 2.5 mg [id number] PRN IH SHORTNESS OF BREATH 08/02/24 21:30 09/01/24 21:29 Aspirin (Aspirin 325mg Tab) 325 mg ONCE ONCE PO 08/02/24 20:00 08/02/24 20:01 DC 08/02/24 20:00 Clonidine HCl (CATApres 0.1 mg TAB) 0.1 mg Q6H PRN PO IF SBP GREATER THAN 160 08/02/24 21:30 09/01/24 21:29 Dextrose (D50w) 50 ml AD PRN IV HYPOGLYCEMIA PROTOCOL 08/02/24 21:30 09/01/24 21:29 Furosemide (LASix 20MG VIAL) 40 mg Q12H IV 08/02/24 21:30 09/01/24 21:29 08/02/24 21:59 Glucagon (Glucagon 1mg Kit) 1 mg AD PRN IM HYPOGLYCEMIA PROTOCOL 08/02/24 21:30 09/01/24 21:29 Hydralazine HCl (APRESOLine 20MG INJ) 10 mg Q6H PRN IV SBP GREATER THAN 180 08/02/24 21:30 09/01/24 21:29 Iohexol (Omnipaque) 75 ml STK-MED ONCE IV 08/02/24 20:20 08/02/24 20:20 DC Iohexol (Omnipaque) 75 ml STK-MED ONCE IV 08/02/24 21:22 08/02/24 21:22 DC Labetalol HCl (TRANdate 20MG SYG) 10 mg Q4HPRN PRN IV SBP GREATER THAN 160 08/02/24 21:30 09/01/24 21:29 Lactulose (Constulose 20gm/ 30ml Udcup) 20 gm Q6H PRN PO CONSTIPATION 08/02/24 21:30 09/01/24 21:29 Magnesium Sulfate 50 ml @ 0 mls/hr PROTOCOL PRN IV MAGNESIUM PROTOCOL 08/02/24 21:30 09/01/24 21:29 Ondansetron HCl (zoFRAN 4MG INJ) 4 mg Q6H PRN IVP NAUSEA/VOMITING 08/02/24 21:30 09/01/24 21:29 Potassium Chloride (K-Dur/Klor-Con 20meq) 20 meq AD PRN PO POTASSIUM PROTOCOL 08/02/24 21:30 09/01/24 21:29 Potassium Chloride (KCl 10% Elixir 20meq/15ml) 20 meq AD PRN PO POTASSIUM PROTOCOL 08/02/24 21:30 09/01/24 21:29 Vital Signs Date Time Temp Pulse Resp B/P (MAP) Pulse Ox O2 Delivery O2 Flow Rate FiO2 08/02/24 16:43 98.4 68 20 150/100 98 Room Air 0 DX & DISP Disposition: Inpatient Departure Impression: Primary Impression: Pleural effusion Additional Impression: Chest pain Condition: Stable Referrals: JEFFREY DOMINGUEZ MD (PCP) GERALDINE FERANNDEZ MD Aug 02, 2024 17:53 EVELYN FRANCES DO Aug 02, 2024 21:05
[2024-08-02 18:11] LABS: B-TYPE NATRIURETIC PEPTIDE 568 pg/mL (0-100)
[2024-08-02] MEDS: ASPIRIN 325MG TAB PO ONE (20:00)
--- NOTE | 2024-08-02 20:00 | NUR ---
Monika byers in EDM - 08/02/24 at 2001 by [email or web address] PATIENT BROUGHT TO ED 18
[2024-08-02] MEDS ORDERED: IOHEXOL-350 75 ML VIAL IV ONE ×2 (20:20→21:22)
--- NOTE | 2024-08-02 20:40 | HMCIMG ---
CT ABDOMEN WITH CONTRAST. CT PELVIS WITH CONTRAST INDICATION: Epigastric bloating TECHNIQUE: Routine transaxial images using 5 mm slice thickness were obtained after the intravenous infusion of 100 mL of Omnipaque 350 without adverse effects. Oral contrast was not administered. Rectal contrast was not administered. Coronal and sagittal reformatted images acquired for interpretation. CT was performed with one or more of the following dose reduction techniques: Automated exposure control, adjustment of the mA and/or kV according to patient size, or use of iterative reconstruction technique. COMPARISON: None FINDINGS: ABDOMEN: Heart size is normal. Small right pleural effusion. A few micronodules and nodules are scattered throughout the left lower lobe. The liver is normal in size and smooth in contour without lesions or biliary duct dilation. The spleen is normal in size without lesions. The gallbladder appears normal. The pancreas appears normal without pancreatic duct dilation. The adrenal glands appear normal. A couple of 6 mm nonobstructing stones at the lower portion of the left kidney. Right kidney appears normal. Both ureters appear normal. Cortical nephrograms are symmetric and normal in appearance bilaterally. No evidence for intra-abdominal free air or organized fluid collection. No retrocrural, intraabdominal, or retroperitoneal lymphadenopathy identified. No aortic aneurysmal dilation or dissection identified. PELVIS: No evidence for free air or organized pelvic fluid collection. No significant pelvic adenopathy detected. Visualized small and large bowel loops appear unremarkable. Terminal ileum appears normal. The appendix appears normal. The urinary bladder appears unremarkable. Visible osseous structures are intact. IMPRESSION: Left lower lobe micronodules or nodules as well as small right pleural effusion. CT imaging of the chest is advised for further evaluation. Metastatic disease remains at the top of the differential. Nonobstructive left nephrolithiasis.
[2024-08-02 21:00] LABS: BILIRUBIN,DIRECT 0.2 mg/dL (0.0-0.3)
[2024-08-02] MEDS ORDERED: hydrALAZine 20MG/ML VIAL IV PRN (21:30)
[2024-08-02] MEDS ORDERED: MAGNESIUM 2GM PREMIX 50ML 50 ML IV PRN (21:30)
[2024-08-02] MEDS ORDERED: LAbetaLOL 20MG SYG IV PRN (21:30)
[2024-08-02] MEDS ORDERED: ondanSETRON 4MG INJ IVP PRN (21:30)
[2024-08-02] MEDS ORDERED: GLUCAGON 1MG KIT 1 MG ML IM PRN (21:30)
[2024-08-02] MEDS ORDERED: ALBUTEROL 0.083% 2.5 MG/3 ML INH IH PRN (21:30)
[2024-08-02] MEDS ORDERED: PoTASSium chl 10% ELIXIR 20MEQ 20 MEQ/15 ML UDCUP PO PRN (21:30)
[2024-08-02] MEDS ORDERED: LACTULOSE 20 GM/30 ML UDCUP PO PRN (21:30)
[2024-08-02] MEDS ORDERED: DEXTROSE 50%-WATER 50 ML DISP.SYRIN IV PRN (21:30)
[2024-08-02] MEDS ORDERED: acetaMINOPHEN 325 MG TAB PO PRN (21:30)
[2024-08-02] MEDS ORDERED: cloNIDine HCL 0.1 MG TABLET PO PRN (21:30)
--- NOTE | 2024-08-02 21:40 | HP ---
[facility] HISTORY & PHYSICAL Date Patient Seen: Aug 03, 2023 Time of Visit: 0005 Supervising Physician: [Dr. Koko Dominguez] Primary Care Physician: Dr. Candelario Wolf ] Outpatient Specialists: [Dr. Lewis-cardiology ] Inpatient Consults: [ ] PROBLEM LIST: Right pleural effusion-POA Fluid overload-POA Dyspnea-POA, progressive Suspected new-onset CHF-POA, positive [place] score Acute hypoxic respiratory insufficiency, now on 2lpm via NC, baseline is room air-POA CAD s/p CABG T2DM Primary HTN HLD Recent sinus infection PLAN: -Admit to medsurg telemetry -IV Lasix 40 mg BID -Obtain 2Decho in AM -Titrate oxygen to keep sats >92% -IS q1H x 10 while awake HPI: [Patient is a 68-year-old male with PMH significant for CAD status post CABG x3, T2 DM, HTN, HLD and a recent sinus infection who was presented to ED complaining of progressive shortness of breath that started around 2-3 weeks ago. Patient claims that after his sinus infection he felt that his breathing has always been a challenge. He easily gets short-winded with pertinent positives that include PND, orthopnea and worsening BLE swelling. He also noticed that there are times when he could not have full lung expansion. At the ED, his preliminary lab works were concerning for elevated BNP of 568. CXR showed mild cardiomegaly. CT AP showed mild left lung micronodules as well as small right pleural effusion. A follow-up CT chest was done that yielded practically same result. Patient denies any history of lung cancer. On my examination, patient is resting on the gurney, denies chest pain or discomfort, hemodynamically stable and in no acute distress. He is currently wearing 2 L of nasal cannula which he claims helped him deal with his shortness of breath. Physical assessment was unrevealing except for right lung crackles, left lung diminished sound and BLE with 3+ pitting edema. Goals of care were discussed with the patient verbalizes understanding and agreement.] PAST MEDICAL HX: see above PAST SURGICAL HX: noncontributory SOCIAL HISTORY: No tobacco, ETOH, or illicit drug use Coded Allergies: No Known Drug Allergies (Verified Allergy, Unknown, 02/17/14) REVIEW OF SYSTEMS: 12 point ROS reviewed with patient. Pertinent positives mentioned above. Otherwise negative. PHYSICAL EXAM: GENERAL: alert, awake oriented x 3 HEENT: EOMI, Sclera non icteric, moist mucosa NECK: Supple, no JVD, trachea midline LUNGS: Right lung crackles, left lung diminished. No wheezes or rhonchi HEART: Regular rate and rhythm. Normal S1 and S2, without murmurs ABD: Abdomen soft, nontender. Bowel sounds present EXT: No clubbing cyanosis, 3+ pitting edema on BLE NEURO: Alert and oriented to person, follows commands Vital Signs (last 8hr) Date Time Temp Pulse Resp B/P (MAP) Pulse Ox O2 Delivery O2 Flow Rate FiO2 08/02/24 16:43 98.4 68 20 150/100 98 Room Air 0 LABS: Hematology Labs: Test 08/02/24 16:55 Range/Units White Blood Count 7.0 4.8-10.8 K/uL Red Blood Count 4.96 4.50-6.20 MIL/uL Hemoglobin 15.1 14.0-18.0 g/dL Hematocrit 45.6 42-54 % Mean Corpuscular Volume 91.9 79-99 fL Mean Corpuscular Hemoglobin 30.4 27.0-33.0 pg Mean Corpuscular Hemoglobin Concent 33.1 32.0-36.0 g/dL Red Cell Distribution Width 13.7 11.0-15.5 % Platelet Count 185 130-400 K/uL Mean Platelet Volume 9.2 7.5-10.5 fL Immature Granulocyte % (Auto) 0.3 0-1 % Neutrophils (%) (Auto) 64.7 40.0-77.0 % Lymphocytes (%) (Auto) 25.1 21.0-51.0 % Monocytes (%) (Auto) 7.3 3.0-13.0 % Eosinophils (%) (Auto) 1.7 0.0-8.0 % Basophils (%) (Auto) 0.9 0.0-5.0 % Neutrophils # (Auto) 4.5 1.8-7.7 K/uL Lymphocytes # (Auto) 1.8 1.0-4.8 K/uL Monocytes # (Auto) 0.5 0.1-1.0 K/uL Eosinophils # (Auto) 0.12 0.00-0.70 K/uL Basophils # (Auto) 0.06 0.00-0.20 K/uL Absolute Immature Granulocyte (auto 0.02 0-1 K/uL Nucleated Red Blood Cells 0.0 0.0-0.19 % Chemistry Labs: Test 08/02/24 17:13 08/02/24 16:55 Range/Units Troponin I < 0.05 0.00-0.05 ng/mL Sodium Level 142 136-145 mmol/L Potassium Level 4.2 3.5-5.1 mmol/L Chloride Level 105 101-111 mmol/L Carbon Dioxide Level 27 21-32 mmol/L Blood Urea Nitrogen 23 H 7-18 mg/dL Creatinine 1.2 0.5-1.3 mg/dL Glomerular Filtration Rate Calc 66 >90 mL/min Random Glucose 148 H 70-105 mg/dL Total Calcium 9.2 8.5-10.1 mg/dL Total Bilirubin 1.0 0.2-1.0 mg/dL Direct Bilirubin 0.2 0.0-0.3 mg/dL Aspartate Amino Transf (AST/SGOT) 34 10-37 U/L Alanine Aminotransferase (ALT/SGPT) 48 12-78 U/L Alkaline Phosphatase 78 50-136 U/L Total Creatine Kinase 271 #H 21-232 U/L B-Type Natriuretic Peptide 568 H 0-100 pg/mL Total Protein 7.0 6.0-8.3 g/dL Albumin 4.0 3.5-5.0 g/dL Lipase 52 16-77 U/L DIAGNOSTICS / RADIOLOGY RESULTS: [ ] PLAN NEURO: Minimize central acting medications as possible. Maintain fall precautions, adequate lighting during the day PULMONARY: Supplemental 02 as needed. Maintain aspiration precautions at all times CARDIOVASCULAR: Follow hemodynamics. Vital signs per facility protocol GI & NUTRITION: Continue with nutritional support. Continue stool softeners and laxatives as needed. KIDNEYS & ELECTROLYTES: Strict monitoring of intake, output and overall fluid balance. Avoid nephrotoxic medications to the extent possible. Medications to be dosed according to renal function. Monitor electrolytes and replace as needed ENDOCRINE: Maintain blood glucose between 100-180 at all times. Hypoglycemia protocol in place INFECTIOUS DISEASE: Trend temperature, WBC and procalcitonin level Follow cultures, deescalate antibiotics as soon as possible. Panculture if new onset fever ONCOLOGY/HEMATOLOGY/COAGULATION: Monitor for s/s of bleeding Monitor hemoglobin, coagulation studies as needed SKIN: Pressure ulcer prevention per facility protocol Specialty mattress ORTHO/REHAB: Continue PT/OT Prophylaxis: Continue GI and DVT prophylaxis Code Status: Full Resuscitation Disposition: TBD Other: Total patient care time: 35 minutes ARMAND ROSENBERG Aug 02, 2024 21:40
--- NOTE | 2024-08-02 21:54 | HMCIMG ---
CT CHEST WITH CONTRAST INDICATION: Left lower lobe micronodules/nodules on CT abdomen imaging TECHNIQUE: Routine axial images using 5 mm slice thickness were acquired from the lung apices to the bases after the administration of 100 mL of Isovue 370 IV contrast.Coronal and sagittal reformatted images acquired for interpretation. CT was performed with one or more of the following dose reduction techniques: Automated exposure control, adjustment of the mA and/or kV according to patient size, or use of iterative reconstruction technique. COMPARISON: None FINDINGS: Median sternotomy wires as well as fixation plates and screws are in appropriate alignment. The heart size is normal. Coronary arterial wall calcific plaque noted. No pericardial effusion noted. The visualized great vessels and thoracic aorta are within normal limits. The trachea and airways are patent. A few left lower lobe micronodules/nodules, but remainder of the lungs are clear. No axillary, hilar, or mediastinal lymphadenopathy. Small right pleural effusion without pneumothorax. Visible osseous structures are intact. IMPRESSION: A few left lower lobe micronodules/nodules, but remainder of the lungs are clear. This may represent residual from prior pneumonia or other insult, especially if no history of primary neoplasm, but follow-up will be necessary in order to ensure resolution. Small right pleural effusion. Coronary arterial wall calcific plaque noted.
[2024-08-02] MEDS: furoSEMIDE 20MG VIAL IV SCH (21:59)
--- NOTE | 2024-08-03 00:38 | NUR ---
report called to Piper Stein
[2024-08-03 00:50] VITALS: BP 140/94; PULSE 83; RESP 20; TEMP 98.5
[2024-08-03] MEDS ORDERED: LOSA50TA64 PO (01:39)
[2024-08-03] MEDS ORDERED: METF-910 PO (01:39)
[2024-08-03] MEDS ORDERED: METO50 PO (01:40)
[2024-08-03] MEDS ORDERED: INSU3INS3 SQ (01:42)
[2024-08-03 01:45] VITALS: O2SAT 99
[2024-08-03 04:00] VITALS: BP 125/72; PULSE 70; RESP 20; TEMP 98
[2024-08-03] MEDS: INSULIN humuLIN R 100 UNIT/ML 3ML SQ SCH (07:30)
[2024-08-03 07:58] LABS: BASOPHILS # (AUTO) 0.04 K/uL (0.00-0.20); BASOPHILS % (AUTO) 0.5 % (0.0-5.0); EOSINOPHILS # (AUTO) 0.09 K/uL (0.00-0.70); EOSINOPHILS % (AUTO) 1.1 % (0.0-8.0); HEMATOCRIT 41.9 % (42-54); IMMATURE GRANULOCYTE ABSOLUTE 0.01 K/uL (0-1); LYMPHOCYTES # (AUTO) 1.2 K/uL (1.0-4.8); MEAN CORPUSCULAR HEMOGLOBIN 30.7 pg (27.0-33.0); MEAN CORPUSCULAR HGB CONC 34.4 g/dL (32.0-36.0); MEAN CORPUSCULAR VOLUME 89.3 fL (79-99); MONOCYTES # (AUTO) 0.6 K/uL (0.1-1.0); MONOCYTES % (AUTO) 6.8 % (3.0-13.0); NEUTROPHILS # (AUTO) 6.2 K/uL (1.8-7.7); NEUTROPHILS % (AUTO) 76.5 % (40.0-77.0); PLATELET COUNT (AUTO) 175 K/uL (130-400); RED BLOOD CELL COUNT(AUTO) 4.69 MIL/uL (4.50-6.20); RED CELL DISTRIBUTION WIDTH 13.7 % (11.0-15.5); WHITE BLOOD COUNT (AUTO) 8.1 K/uL (4.8-10.8)
[2024-08-03 08:00] VITALS: BP 143/87; PULSE 80; RESP 18; TEMP 97.7
[2024-08-03 08:15] LABS: INR 1.1 (0.85-1.15); PROTHROMBIN TIME 12.2 SEC (9.6-11.6)
[2024-08-03 08:32] LABS: CREATININE 0.9 mg/dL (0.5-1.3); PHOSPHORUS 4.2 mg/dL (2.5-4.9); POTASSIUM 3.7 mmol/L (3.5-5.1); THYROID STIMULATING HORMONE 2.25 uIU/mL (0.36-3.74)
[2024-08-03] MEDS: ENOXAPARIN SODIUM 40 MG/0.4 ML SYRINGE SQ SCH (09:07)
[2024-08-03] MEDS: PoTASSium chloRIDE 20MEQ ER 20 MEQ ERTAB PO PRN (09:09)
[2024-08-03 10:51] VITALS: O2SAT 99
[2024-08-03 12:00] VITALS: BP 137/90; PULSE 77; RESP 18; TEMP 97.7
--- NOTE | 2024-08-03 14:18 | DS ---
[facility] DISCHARGE SUMMARY Date Patient Seen: Aug 03, 2024 Time of Visit: 14:18 Supervising Physician: Dr. Camron Ulloa Primary Care Physician: Dr. Candelario Wolf ] Outpatient Specialists: [Dr. Lewis-cardiology ] Inpatient Consults: [ ] HOSPITAL COURSE: HPI (per admitting provider) Patient is a 68-year-old male with PMH significant for CAD status post CABG x3, T2 DM, HTN, HLD and a recent sinus infection who was presented to ED complaining of progressive shortness of breath that started around 2-3 weeks ago. Patient claims that after his sinus infection he felt that his breathing has always been a challenge. He easily gets short-winded with pertinent positives that include PND, orthopnea and worsening BLE swelling. He also noticed that there are times when he could not have full lung expansion. At the ED, his preliminary lab works were concerning for elevated BNP of 568. CXR showed mild cardiomegaly. CT AP showed mild left lung micronodules as well as small right pleural effusion. A follow-up CT chest was done that yielded practically same result. Patient denies any history of lung cancer. On my examination, patient is resting on the gurney, denies chest pain or discomfort, hemodynamically stable and in no acute distress. He is currently wearing 2 L of nasal cannula which he claims helped him deal with his shortness of breath. Physical assessment was unrevealing except for right lung crackles, left lung diminished sound and BLE with 3+ pitting edema. Goals of care were discussed with the patient verbalizes understanding and agreement. The patient was treated for the following problems: ACTIVE PROBLEM LIST FOR THE HOSPITALIZATION: Right pleural effusion, asymptomatic, treated with diuresis Fluid overload-resolved Dyspnea-POA, resolved Suspected new-onset CHF-POA, positive [place] score, advised to follow up as outpatient Acute hypoxic respiratory insufficiency, now on 2lpm via NC, baseline is room air-, resolved CHRONIC PROBLEMS: continue previous management per PCP unless otherwise indicated CAD s/p CABG T2DM Primary HTN HLD Recent sinus infection [employer] FINDINGS/RECOMMENDATIONS: [ ] PROCEDURES: as mentioned above DISCHARGE MEDICATIONS: Pt hemodynamically stable and afebrile at time of discharge. PCP notified of patients admission, hospital course and discharge. PHYSICAL EXAM: GENERAL: alert, awake oriented x 3 HEENT: EOMI, Sclera non icteric, moist mucosa NECK: Supple, no JVD, trachea midline LUNGS: Right lung crackles, left lung diminished. No wheezes or rhonchi HEART: Regular rate and rhythm. Normal S1 and S2, without murmurs ABD: Abdomen soft, nontender. Bowel sounds present EXT: No clubbing cyanosis, 3+ pitting edema on BLE NEURO: Alert and oriented to person, follows commands FOLLOW-UP: Follow-up with PCP in 2-3 days RECOMMENDATIONS: See Discharge Instructions This case was seen and discussed with my supervising physician. More than 30 minutes spent on discharge process, including evaluation of the patient, discussion with nursing staff, medication reconciliation and follow-up appointments PHYLICIA ROBERTS Aug 03, 2024 14:18
--- NOTE | 2024-08-03 17:05 | HMCSR ---
APPROVED REPORT EXAM: Two-dimensional and M-mode echocardiogram with Doppler and color Doppler. INDICATION ICD: Fluid overload (unspecified) E87.70, Congestive heart failure 2D Dimensions RVDd3.8 cmLVEF(%)20.6 (>50%)LVED Vol(simp.)138.0 mL IVSd0.7 (0.7-1.1cm)FS(%)10 %LVES Vol(simp.)81.9 mL LVDd6.2 (3.8-5.6cm)LA (2D)5.0 (1.6-4.0cm)LVEF(%, simp.)41 % PWd0.7 (0.7-1.1cm)Ao Root(2D)3.4 (2.0-3.7cm)LA ESV INDEX (4CH)32.20 mL/m2 IVSs0.9 cmLVOT diam2.5 (1.8-2.4cm)LA ESV INDEX (2CH)35.10 mL/m2 LVDs5.6 (2.5-4.0cm)LA ESV INDEX (BP)32.70 mL/m2 PWs0.9 cm M-Mode Dimensions EPSS2.0 cm LA (MM)5.3 (1.6-4.0cm) Ao Root(MM)3.3 (2.0-3.7cm) Aortic Valve AoV VTI0.2 mAo Mean GR3.0 mmHgLVOT VTI0.09 m JELENA (VMAX)2.1 cm2AVA (VTI) 2.1 cm2 Mitral Valve MV E Cnli240.1 cm/sDECEL Evhu861 ms MV A Vmax30.6 cm/sP 1/2 T64 ms E/A ratio3.6MVA (PHT)3.4 cm2 MR Max PG29 mmHg TDI E/E' Fwoctf11.0E/E' Uphmfem80.4 Medial E' Peak V2.90 cm/sLateral E' Peak V3.20 cm/s Pulmonary Valve PV Vmax0.6 m/s PV Peak GR1.4 mmHg Tricuspid Valve TR Vmax2.7 m/sRAP (EST) 8 ruZnFQCS66.9 mmHg TR Peak GR28.9 mmHg Left Ventricle The left ventricle is moderately dilated with an LVIDd of 6.2 cm. Severe inferolateral, inferoapical, and inferoseptal hypokinesis. Moderate global hypokinesis. There is mild inferolateral left ventricu lar wall thinning. LVEF is 35-40%. Grade III diastolic dysfunction. Right Ventricle The right ventricle is normal size. The right ventricular systolic function is reduced. Atria The left atrium size is normal with an LA ESV index of 32 mL/m. The right atrium size is normal. Aortic Valve Aortic valve is trileaflet and mildly sclerotic. No aortic stenosis. No aortic regurgitation is prese nt. There is no aortic valvular stenosis. Mitral Valve The mitral valve is mildly thickened and open well. There is trace of mitral valve regurgitation note d. There is no mitral valve stenosis. Tricuspid Valve The tricuspid valve is normal in structure. There is trace of tricuspid valve regurgitation noted. Pulmonic Valve The pulmonary valve is normal in structure. There is no pulmonic valvular regurgitation. Great Vessels The aortic root is normal in size. IVC is not well visualized. Pericardium There is no pericardial effusion. Other Information Quality : Technically difficult study due to body habitus. Conclusion The left atrium size is normal with an LA ESV index of 32 mL/m. The left ventricle is moderately dilated with an LVIDd of 6.2 cm. There is mild inferolateral left ventricular wall thinning. Severe inferolateral, inferoapical, and inferoseptal hypokinesis. Moderate global hypokinesis. LVEF is 35-40%. Grade III diastolic dysfunction. Aortic valve is trileaflet and mildly sclerotic. No aortic stenosis. There is trace of mitral valve regurgitation noted. There is no pericardial effusion.
[2024-08-03] MEDS ORDERED: furoSEMIDE 40MG VIAL IV SCH (21:00)
== END 2024-08-03 15:35 | disposition home or self-care (01) ==
LOC: EDH 16:41 → EDHIP 21:30 → 3DH 08-03 00:07
PROVIDERS: ADMIT Internal Medicine Pulmonary Disease; ATTEND Internal Medicine Pulmonary Disease
DX: J90 Pleural effusion, not elsewhere classified (principal); E87.70 Fluid overload, unspecified; E78.00 Pure hypercholesterolemia, unspecified; D68.9 Coagulation defect, unspecified; E11.9 Type 2 diabetes mellitus without complications; I25.10 Atherosclerotic heart disease of native coronary artery without angina pectoris; I25.2 Old myocardial infarction; E78.5 Hyperlipidemia, unspecified; R14.0 Abdominal distension (gaseous); R60.0 Localized edema; Z20.822 Contact with and (suspected) exposure to COVID-19; Z98.890 Other specified postprocedural states; Z95.1 Presence of aortocoronary bypass graft; Z79.899 Other long term (current) drug therapy
CPT/HCPCS: 96374; 99285; 82550; 80076; 84484; 80048 ×2; 83880; 83690; 85025 ×2; 87804 ×2; 82948 ×3; 87426; 36415 ×2; 71045; 71260; 74177; 93005; 96376; 96372; 84443; 83735; 84100; 85610; 93306; G0378 ×17; J1940 ×2; Q9967 ×2; J1815; J1650

== ENCOUNTER → 2024-08-08 | Outpatient (CLI) | payer OTHER ==
[~2024-08-08] MED LIST changes: -FURO20TA6 PO; -INSU100I24 SQ; +INSU3INS3 SQ; +LOSA50TA64 PO; +METF-910 PO; -METO25 PO; +METO50 PO
[2024-08-08 16:44] LABS: CREATININE 1.1 mg/dL (0.5-1.3); POTASSIUM 4.7 mmol/L (3.5-5.1)
== END | disposition home or self-care (01) ==
LOC: LAB 11:47
PROVIDERS: ATTEND Internal Medicine Cardiovascular Disease
DX: I11.0 Hypertensive heart disease with heart failure (principal); I50.21 Acute systolic (congestive) heart failure
CPT/HCPCS: 36415; 80048; 83880

== ENCOUNTER → 2024-08-18 | Outpatient (CLI) | payer OTHER ==
[2024-08-18] MEDS: REGADENOSON 0.4 MG/5 ML PF SYG IVP ONE (15:08)
--- NOTE | 2024-08-22 16:32 | HMCSR ---
APPROVED REPORT Height: 5 ft 6in Weight: 193 lbs TEST INDICATIONS i25.810 ATHEROSCLRS COR BYPS GRFT WO ANDG MEETA The imaging protocol used to acquire images was Rest Tc-99m/stress Tc-99m 1 day Consent: The procedure was explained and understood by the patient. Informerd consent was witnessed Armando Angelo RN First, low dose rest was performed then high dose stress. RESTING DATA: The resting ekg shows: NSR, poor R wave progression, LAFB Rest SPECT myocardial perfusion imaging was performed in supine position 87 minutes following the int ravenous injection of 10.7 mCi of Tc-99 Sestamibi. Time of rest injection: 08:09: Date: 08/18/2024 Time of rest imagin:36: Date: 08/18/2024 PHARMACOLOGIC STRESS: Pharmacologic stress test was performed by injecting regadenoson 0.4 mg IV push followed by the intra venous injection of 29.0 mCi of Tc-99 Sestamibi. Time of stress injection: 10:02: Date: 08/18/2024 Time of stress imagin:47: Date: 08/18/2024 Heart Rate at time of stress injection: 82 bpm. Gated Stress SPECT was performed 105 minutes after stress injection. The images were gated to evaluate regional wall motion and calculate left ventricular ejection fracti on. STRESS DETAILS Reason for Termination: Infusion complete Stress Symptoms: Dyspnea Max HR Achieved: 108 bpm % of APMHR Achieved: 71 Max Blood Pressure: 149/72 mmHg Stress ECG: NSR, poor R wave progression, LAFB Arrhythmia: No. ST Change: No. Study quality was good. Lung uptake was Normal. Artifact: No artifact LEFT VENTRICLE Size: Left ventricle is dilated. Systolic Function:The left ventricular systolic function is severely decreased. Wall Motion: Hypokinesis of the inferior, inferoseptal, anteroseptal, inferolateral, anterolateral w alls. The left ventricular ejection fraction was calculated to be 26%.TID = . LV PERFUSION Large size, severe fixed perfusion defect of the basal to mid inferolateral wall. Large size, moderate severity perfusoin defect of the mid to distal inferior wall, with partial rever sibility. Visually, transient ischemic dilation of the left ventricle is present. RV Size/Shape Right ventricle appears dilated. IMPRESSION Abnormal pharmacologic nuclear stress test. Global LV Function: Severely reduced Stress ECG Summary: Nondiagnostic LV Perfusion Summary: Abnormal LV Viability Summary: Potentially viable myocardium Conclusion LV is dilated with severely reduced LVSF. EF 26% There is transient ischemic dilation of the left ventricle. Large fixed defect of the inferolateral wall with associated hypokinesis consistent with scar. Predominently fixed defect of the distal inferior wall with hypokinesis with partial reversibility.
== END | disposition home or self-care (01) ==
LOC: SHCH 07:48
PROVIDERS: ATTEND Internal Medicine Cardiovascular Disease
DX: I44.4 Left anterior fascicular block (principal); I51.7 Cardiomegaly; I25.810 Atherosclerosis of coronary artery bypass graft(s) without angina pectoris
CPT/HCPCS: 78452; 93017; J2785; A9500 ×2